=== PATIENT | female | born 1955 | race Caucasian/White ===

== ENCOUNTER → 2016-11-14 | Outpatient (CLI) | payer OTHER ==
[~2016-11-14] MED LIST: ALUMSUS2 PO; AMB5 PO; AMLO-114 PO; AMLO5TAB4 PO; ASCA500 PO; ATV5 PO; BND25X PO; CLB200 PO; CLC100 PO; CLTP PO; CYM60 PO; CZR25 PO; DLCS PR; DULO60CA44 PO; ESOM40GR PO; FLTE PR; FLV400 PO; FOLI400T41 PO; FRRG PO; GLCI SQ; HALO10TA17 PO; HLD5 PO; INSUINJ14 SC; LAMO100T16 PO; LEVO-217 PO; LEVO50TA PO; LORA-741 PO; LRT5 PO; MELO7.5T5 PO; MULT-506 PO; MULTTAB58 PO; OXYC1TAB3 PO; OXYSR20 PO; PANT40TA PO; SIMV20TA2 PO; XRL10 PO; [UNRECOGNIZED DRUG - CODE] PO; [UNRECOGNIZED DRUG - CODE] PO; super b complex PO
[2016-11-14 18:42] LABS: BASO % 0.4 %; BASO ABS # 0.02 K/uL (0-0.2); COMPLETE YES; EOS % 2.2 %; HEMATOCRIT 40.8 % (37-47); IG% 0.2 %; LYMPH % 28.1 %; MEAN CELL VOLUME 93.2 fL (80-100); MEAN CORPUSCULAR HEMOGLOBIN 29.7 pg (25-34); MEAN CORPUSCULAR HGB CONC 31.9 g/dl (32-36); MEAN PLATELET VOLUME 9.9 fL (7.4-10.4); MONO % 13.9 %; NEUT % 55.2 %; PLATELET COUNT 305 K/uL (130-400); RED BLOOD COUNT 4.38 M/uL (4.2-5.4); WHITE BLOOD COUNT 4.98 K/uL (4.8-10.8)
[2016-11-14 18:54] LABS: BLOOD UREA NITROGEN 15 mg/dl (7-18); BUN/CREATININE RATIO 15.8 (10-20); CALCIUM 8.7 mg/dl (8.5-10.1); CARBON DIOXIDE 29 mmol/L (21-32); CHLORIDE 107 mmol/L (98-107); CREATININE 0.95 mg/dl (0.60-1.20); GLUCOSE 110 mg/dl (70-99); POTASSIUM 3.8 mmol/L (3.5-5.1); SODIUM 141 mmol/L (136-145)
[2016-11-14 19:03] LABS: ALKALINE PHOSPHATASE 137 U/L (45-117); ALT/SGPT 38 U/L (12-78); AST/SGOT 25 U/L (15-37); CHOLESTEROL 131 mg/dl (0-200); CHOLESTEROL/HDL RATIO 2.3; HDL CHOLESTEROL 57 mg/dl; LDL CHOLESTEROL CALCULATED 59 mg/dl; TRIGLYCERIDES 73 mg/dl (0-150); VERY LOW DENSITY LIPOPROT CALC 15 mg/dl
[2016-11-15 06:34] LABS: ESTIMATED AVERAGE GLUCOSE 120 mg/dl; HA1C FLAG Normal (Normal)
== END | disposition home or self-care (01) ==
LOC: C.LABSPEC 17:48
PROVIDERS: ATTEND Family Medicine
DX: E11.9 Type 2 diabetes mellitus without complications (principal); E03.9 Hypothyroidism, unspecified; I10 Essential (primary) hypertension

== ENCOUNTER → 2017-02-22 | Outpatient (CLI) | payer OTHER ==
[2017-02-22 14:13] LABS: THYROID STIMULATING HORMONE 2.58 uIu/ml (0.300-4.500)
== END | disposition home or self-care (01) ==
LOC: C.LABSPEC 13:09
PROVIDERS: ATTEND Family Medicine
DX: E03.9 Hypothyroidism, unspecified (principal); Z11.3 Encounter for screening for infections with a predominantly sexual mode of transmission